=== PATIENT | male | born 1975 | race Caucasian/White ===

== ENCOUNTER → 2020-07-17 | Outpatient (CLI) | payer OTHER | END | disposition home or self-care (01) | LOC: STAR 10:03 | PROVIDERS: ATTEND Surgery | DX: Z20.822 Contact with and (suspected) exposure to COVID-19 (principal); K40.90 Unilateral inguinal hernia, without obstruction or gangrene, not specified as recurrent | CPT/HCPCS: U0003 ==

== ENCOUNTER 2020-07-23 11:10 | Day surgery (SDC) | payer OTHER ==
[~2020-07-23] VITALS: Ht 180.3 cm; Wt 77.6 kg
[~2020-07-23 11:10] MED LIST: CEFAZOLIN 1,000 MG ONE; FENTANYL PF 100 MCG/2ML ONE; MIDAZOLAM 1 MG/ML, 2ML ONE; ONDANSETRON 2MG/ML, 2ML ONE; PROPOFOL 10 MG/ML, 20ML ONE; ROCURONIUM 10MG/ML,5ML ONE
[2020-07-23] MEDS ORDERED: BUPIVACAINE/PF-EPI 0.5% 1:200K ONE (11:24)
[2020-07-23] MEDS ORDERED: TUMS PO (11:24)
[2020-07-23] MEDS ORDERED: PEPCI PO (11:24)
[2020-07-23] MEDS ORDERED: ONDANSETRON 2MG/ML, 2ML IVPush PRN (11:30)
[2020-07-23] MEDS ORDERED: HYDROmorphone 1 MG/ML, 1ML INJ IVPush PRN (11:30)
[2020-07-23] MEDS ORDERED: DIPHENHYDRAMINE 50 MG/ML, 1ML IVPush PRN (11:30)
[2020-07-23] MEDS ORDERED: LABETALOL 5MG/ML, 20ML IV PRN (11:30)
[2020-07-23] MEDS ORDERED: CHLORHEXIDINE 15 ML UDC MM ONE (11:30)
[2020-07-23] MEDS ORDERED: DIAZEPAM 5 MG/ML, 2ML IVPush PRN (11:30)
[2020-07-23] MEDS ORDERED: OXYcodone 5 MG/5 ML ORAL.SOL UDC PO PRN (11:30)
[2020-07-23] MEDS ORDERED: PROMETHAZINE 25 MG/ML, 1ML IVPush PRN (11:30)
[2020-07-23] MEDS ORDERED: hydrALAzine 20 MG/ML, 1ML IV PRN (11:30)
[2020-07-23] MEDS ORDERED: FENTANYL PF 100 MCG/2ML IV PRN ×2 (11:30→12:00)
[2020-07-23] MEDS ORDERED: MEPERIDINE/PF 25MG/0.5ML IVPush PRN (11:30)
[2020-07-23] MEDS: LACTATED RINGERS 1,000 ML IV SCH ×2 (11:37→11:42)
[2020-07-23] MEDS ORDERED: ACETAMINOPHEN 500 MG TABLET PO ONE (12:00)
[2020-07-23] MEDS ORDERED: SUGAMMADEX 200 MG/2 ML IVPush ONE (13:10)
[2020-07-23] MEDS ORDERED: TRAM50TA2 PO (13:19)
[2020-07-23] MEDS ORDERED: KETOROLAC 30 MG/1 ML IVPush PRN (14:30)
== END 2020-07-23 14:45 | disposition home or self-care (01) ==
LOC: OUT 11:10
PROVIDERS: ATTEND Surgery
DX: K40.90 Unilateral inguinal hernia, without obstruction or gangrene, not specified as recurrent (principal)
CPT/HCPCS: 49650; C1727; C1781; J0690; J1885; J2250; J2405; J2704; J3010; J7120